=== PATIENT | female | born 1960 | race Asian ===

== ENCOUNTER 2020-06-21 10:47 | Observation (INO) ==
--- NOTE | 2020-06-21 12:02 | XRay Report ---
SINGLE VIEW CHEST CLINICAL HISTORY: Atypical chest pain. FINDINGS: An AP, portable, upright chest radiograph is compared to study dated 06/16/2020. The cardiom ediastinal silhouette is unremarkable. The lungs appear hyperinflated. There are bibasilar airspace o pacities. No large pleural effusion or pneumothorax is seen. The skeletal structures are osteopenic. The bony thorax is grossly intact. IMPRESSION: There are bibasilar airspace opacities. This could represent scarring/atelectasis versus a mild infectious/inflammatory pneumonitis and clinical correlation will be required. ACT 112: Negative or not required by law. Electronically signed by: Butch David M.D. 06/21/2020 12:01 PM
[2020-06-21 12:21] LABS: D Dimer 300 ug/L FEU (0-500)
[2020-06-21 12:23] LABS: Basophils # (auto) 0.02 K/uL (0-0.2); Basophils % (auto) 0.3 %; Eosinophils # (auto) 0.05 K/uL (0-0.5); Eosinophils % (auto) 0.8 %; Hemoglobin 13.8 g/dL (12.0-16.0); Immature Granulocytes # (auto) 0.01 K/uL (0.00-0.02); Immature Granulocytes % (auto) 0.2 %; Lymphocytes # (auto) 1.49 K/uL (1.2-3.4); Mean Corpuscular Hemoglobin 29.9 pg (25-34); Mean Corpuscular Hgb Conc 34.5 g/dL (32-36); Mean Corpuscular Volume 86.6 fL (80-100); Mean Platelet Volume 8.5 fL (7.4-10.4); Monocytes # (auto) 0.59 K/uL (0.11-0.59); Monocytes % (auto) 9.1 %; Neutrophils # (auto) 4.33 K/uL (1.4-6.5); Neutrophils % (auto) 66.6 %; Platelet Count 288 K/uL (130-400); RDW Coefficient of Variation 13.4 % (11.5-14.5); RDW Standard Deviation 42.6 fL (36.4-46.3); Red Blood Count 4.62 M/uL (4.2-5.4); White Blood Count 6.49 K/uL (4.8-10.8)
[2020-06-21 12:30] LABS: Alanine Aminotransferase 17 U/L (12-78); Albumin Level 3.6 gm/dl (3.4-5.0); Aspartate Aminotransferase 17 U/L (15-37); BUN Creatinine Ratio 19.6 (10-20); Blood Urea Nitrogen 19 mg/dl (7-18); Calcium 9.1 mg/dl (8.5-10.1); Carbon Dioxide 27 mmol/L (21-32); Chloride 104 mmol/L (98-107); Creatinine Clr Calc Pharmacy 54.5 ml/min; Est GFR (Non-African American) 64.7; Glucose 131 mg/dl (70-99); Lipase 200 U/L (73-393); Potassium 3.7 mmol/L (3.5-5.1); Sodium 137 mmol/L (136-145)
[2020-06-21] MEDS ORDERED: ASPIRIN CHEW 324 MG PO STA (12:33)
[2020-06-21 12:39] LABS: Albumin Globulin Ratio 0.8 (0.9-2); Alkaline Phosphatase 116 U/L (45-117); Bilirubin,Total 0.4 mg/dl (0.2-1); Creatine Kinase 102 U/L (26-192); Creatine Kinase MB < 1.0 ng/ml (0.5-3.6); Globulin 4.7 gm/dl (2.5-4.0); Total Protein 8.3 gm/dl (6.4-8.2); Troponin I < 0.015 ng/ml (0-0.045)
[2020-06-21 12:50] LABS: Influenza A virus by PCR Negative (Neg); Influenza B virus by PCR Negative (Neg); RSV by PCR Negative (Neg); SARS CoV2 RNA(COVID-19) InHosp NEGATIVE (Negative)
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
--- NOTE | 2020-06-21 14:47 | Electrocardiogram Report ---
Test Reason : Blood Pressure : / mmHG Vent. Rate : 068 BPM Atrial Rate : 068 BPM P-R Int : 146 ms QRS Dur : 092 ms QT Int : 400 ms P-R-T Axes : 019 007 -01 degrees QTc Int : 425 ms Normal sinus rhythm Nonspecific ST and T wave abnormality Abnormal ECG When compared with ECG of 16-JUN-2020 13:05, Inverted T waves have replaced nonspecific T wave abnormality in Inferior leads Nonspecific T wave abnormality has replaced inverted T waves in Anterior leads Confirmed by Hung Church ([id number]) on 06/21/2020 2:46:34 PM Referred By: Confirmed By:Hung Church
[2020-06-21] MEDS ORDERED: hydrOXYzine HCl 25 MG TAB PO PRN (17:06)
[2020-06-21] MEDS ORDERED: ACETAMINOPHEN 325 MG TAB PO PRN (17:06)
[2020-06-21] MEDS: NITROGLYCERIN 2% OINTMENT 30GM TUBE EXT SCH ×2 (18:00→23:44)
[2020-06-22] MEDS: NITROGLYCERIN 2% OINTMENT 30GM TUBE EXT SCH ×4 (06:05→23:33)
[2020-06-22] MEDS: PANTOprazole 40 MG TAB PO SCH (08:38)
--- NOTE | 2020-06-22 12:36 | XCELERA ---
[id number]
[2020-06-22] MEDS ORDERED: MELATONIN 3 MG TAB PO PRN (18:00)
--- NOTE | 2020-06-22 18:42 | Hospitalist Progress Note ---
Date of Service June 22, 2020 Assessment & Plan (1) Substernal chest pain: 60yo female without much past medical care, and resultant unknown PMH, presented to the ED with sudden-onset substernal chest pain and dyspnea in the setting of 2-3 years of exertional CP, dyspnea, and diaphoresis concerning for ischemia. Chest pain -EKG with nonspecific T wave inversion and nonspecific ST abnormalities -troponin negative, d-dimer subthreshold -stress echo 06/22 negative but with suboptimal HR achieved (65% expected max HR) -history in HPI very concerning for CP of cardiac origin; will consult cardiology, recommendations appreciated -NPO at midnight to optimize patient for potential procedures tomorrow -fasting lipid panel, A1c -nitroglycerin paste prn Hypertensive urgency -on admission -ddx includes pain, anxiety, ACS; resolved after chest pain resolved -normotensive since -continue to monitor GERD -c/w pantoprazole FENGI: regular diet Code status: full code Held home meds: none DVT ppx: patient ambulation; pharmacologic anticoagulation need assessment ongoing Dispo: inpatient pending cardiology consult Admission and Anticipated Discharge Date Admission Date: June 21, 2020 Supervising Physician Co-Signing Physician Notes I personally examined the patient and verified all lindquist points of history and exam, discussed case, and agree with decision making with Dr Robin Once history is able to be better elucidated, it sounds like she has had fairly consistent exertional limits due to chest pain/dyspnea/fatigue for about the last 2 years, and now recently that has been getting less and less. Vitals noted, in general she is awake and alert pleasant no distress. HEENT normocephalic atraumatic mucous membranes moist. Breathing unlabored no accessory muscle use good effort. Skin shows no rashes no pallor or icterus. Chest pain Initial history made it sound more pleuritic, but once history is able to be revisited, she does have a degree of a pleuritic pain, but this was not at all what brought her to the hospitalrather almost more of a story consistent with angina that has been slowly worsening, but with no known coronary diagnosis to support it. Further, she has only recently been starting to see physicians, so while she has very little medical history, it is largely due to lack of looking. With all of this, her nondiagnostic stress test becomes more concerningespecially given that it was terminated due to fatigue/exercise intolerance. Will consult cardiologyquestion whether to simply proceed with a left heart cath, versus doing a pharmacologic stress with more chance of getting a diagnostic study Subjective Patient seen at bedside this afternoon with her son present. Initially used aircraft painter iPad but the translation quality/efficiency was not as adequate as her son translating, so discontinued the iPad translation service and spoke through her son after he offered. Patient is doing well today and reports her chest pain has greatly improved. Denies SOB, nausea, vomiting, lightheadedness, dizziness, palpitations, or other symptoms. Stress echo was negative but was suboptimal with patient reaching only 65% max HR. Spoke with patient at length today to obtain more detailed HPI. She notes her recent sudden-onset chest pain has been crushing, substernal pressure with occasional sharp stabbing pains. She feels faint, flush, and anxious when this happens. No radiation. This is a new pain for her, occurring once last week (went to the ER) and twice last night before she came to the hospital. She also notes a 2-3 year history of exertional chest pain and dyspnea, also substernal and pressure-like, brought on when she goes on walks with her daughter. These walks are fast-paced and patient has trouble keeping up with her daughter. Patient notes this CP used to occur about 30-35 minutes into these walks, but has more recently started occurring earlier. These episodes are associated with dyspnea, sweating, facial pallor, and sometimes shaking in her arms. This occurs every time patient exerts herself this much; there are no times when walking at that pace for that duration does not cause symptoms. Review of Systems Review of Systems: See HPI Physical Exam Physical Exam: Well-appearing, laying in bed, no acute distress, speaking Cantonese NCAT, MMM CV: regular rhythm, no murmurs appreciated Resp: CTABL Abd: soft, nontender, nondistended MSK: moderate tenderness to palpation of left 3rd-5th intercostal spaces, no sternal tenderness, mild tenderness of right 4th-5th intercostal space, no calf tenderness Neuro: no focal deficits appreciated Psych: euthymic, cooperative Results & Data Results & Data ([facility]) Vital Signs (Past 12 Hours) Vital Signs Temp Pulse Pulse Resp BP BP Pulse Ox 06/22/20 16:35 69 06/22/20 13:28 66 112/65 06/22/20 10:18 58 L 06/22/20 07:22 36.6 C 56 L 16 109/66 97 Resident Activity Tracking Resident Involvement: Resident Care Provided Care Provided: Adult Hospital Medicine
--- NOTE | 2020-06-22 19:49 | Billing Data ---
Date of Service June 22, 2020 Coding Level of Care Code 42031 Subseq Obs Care Lvl 3
[2020-06-23] MEDS: NITROGLYCERIN 2% OINTMENT 30GM TUBE EXT SCH ×2 (05:21→13:06)
[2020-06-23 07:50] LABS: Estimated Average Glucose 154 mg/dl
[2020-06-23 08:15] LABS: BUN Creatinine Ratio 28.8 (10-20); Calcium 8.8 mg/dl (8.5-10.1); Creatinine Clr Calc Pharmacy 57.6 ml/min; Est GFR (African American) 84.5; Est GFR (Non-African American) 72.9; Potassium 3.6 mmol/L (3.5-5.1)
[2020-06-23] MEDS: PANTOprazole 40 MG TAB PO SCH (08:57)
--- NOTE | 2020-06-23 09:14 | Hospitalist Progress Note ---
Date of Service June 23, 2020 Assessment & Plan Admission and Anticipated Discharge Date Admission Date: June 21, 2020 Results & Data Results & Data ([facility]) Vital Signs (Past 12 Hours) Vital Signs Temp Pulse Pulse Resp BP Pulse Ox 06/23/20 07:49 36.7 C 59 L 18 126/72 96 06/23/20 06:57 61 06/23/20 02:41 36.6 C 63 18 122/70 97 06/23/20 00:44 71 06/22/20 23:02 36.6 C 70 18 130/80 96
[2020-06-23] MEDS ORDERED: DOBUTamine HCL 12.5 MG/ML 20 ML VIAL IV ONE (10:56)
[2020-06-23] MEDS ORDERED: METOPROLOL TARTRATE 1 MG/ML VIAL IV ONE (10:56)
[2020-06-23] MEDS ORDERED: ATROPINE SULFATE 0.1 MG/ML 10ML SYR IV ONE (10:56)
[2020-06-23] MEDS ORDERED: OPTIRAY 320 125ml IV ONE (14:20)
--- NOTE | 2020-06-23 14:41 | CT Scan Report ---
CT ANGIOGRAM OF THE CHEST CLINICAL HISTORY: Dyspnea on exertion. Abnormal chest x-ray. COMPARISON STUDY: Chest x-ray dated 06/21/2020 TECHNIQUE: Following the IV administration of 120 mL of Optiray-320, CT angiogram of the thorax was p erformed from the thoracic inlet to the lung bases utilizing the pulmonary embolus protocol. Images a re reviewed in the axial, sagittal, and coronal planes. IV contrast was administered without complica tion. MIP imaging was performed. A dose lowering technique was utilized adhering to the principles o f ALARA. CT DOSE: 212.49 mGy.cm FINDINGS: No pathologically enlarged axillary mediastinal or hilar lymph nodes were visualized. There was no evidence of thoracic aortic dilatation. There were no pulmonary artery filling defects to indicate acute pulmonary embolism. No pleural effusions are visualized. There are bibasilar parenchymal opacities, statistically atelectatic. There is biapical pleural and p arenchymal scarring. There is a 7 mm right upper lobe groundglass pulmonary nodule. There is an 8 mm solid subpleural right lower lobe pulmonary nodule, as visualized image #[id number].. There is a 4 mm porter id right upper lobe pulmonary nodule as visualized on image #[id number] IMPRESSION: 1. No evidence of acute pulmonary embolism 2. Lower lobe bibasilar dependent parenchymal opacities. The distribution favors atelectasis although an inflammatory process could appear similar 3. 8 mm solid subpleural right lower lobe pulmonary nodule. A six-month follow-up CT scan is recommen ded. Please refer to below summary of Fleischner criteria recommendations for follow-up of incidental CT n odules (Dustin Carmona, Guidelines for management of small pulmonary nodules detected on CT scans: A sta tement from the Fleischner Society, Radiology 237: [phone].) SOLID NODULES Solitary nodule size: <6 mm * low risk patients: no follow-up needed * high risk patients: optional CT at 12 months Solitary nodule size: 6-8 mm * low risk patients: follow-up at 6-12 months, then consider further follow-up at 18-24 months * high risk patients: initial follow-up CT at 6-12 months and then at 18-24 months if no change Solitary nodule size: >8 mm * either low or high risk patients - consider follow-up CT at 3 months, and/or CT-PET, and/or biopsy Multiple nodules size: <6 mm * low risk patients: no routine follow-up * high risk patients: optional CT at 12 months Multiple nodules size: 6-8 mm * low risk patients: follow-up at 3-6 months, then consider further follow-up at 18-24 months * high risk patients: follow-up at 3-6 months, then at 18-24 months if no change Multiple nodules size: >8 mm * low risk patients: follow-up at 3-6 months, then consider further follow-up at 18-24 months * high risk patients: follow-up at 3-6 months, then at 18-24 months if no change Note: newly detected indeterminate nodule in persons 35 years of age or older. * low risk patients: minimal or absent history of smoking and/or other known risk factors * high risk patients: history of smoking or of other known risk factors (e.g. first degree relative with lung cancer, or exposure to asbestos, radon, uranium) * if a nodule up to 8 mm is partly solid or is ground glass further follow-up is required after 24 m onths to exclude possible slow growing adenocarcinoma (DAVID) SUBSOLID NODULES Solitary pure ground-glass nodule * nodule size <6 mm - no CT follow-up required * nodule size >=6 mm - follow-up CT at 6-12 months, then every 2 years until 5 years Solitary part-solid nodule * nodule size <6 mm - no CT follow-up required * nodule size >=6 mm - follow-up CT at 3-6 months. If unchanged, and solid component remains <6 mm, then annual follow-up for 5 years Multiple subsolid nodules * nodule size <6 mm - follow-up CT at 3-6 months, consider further follow-up at 2 and 4 years if sta ble * nodule size >=6 mm - follow-up CT at 3-6 months, subsequent management based on the most suspiciou s nodule(s) ACT 112: Positive. There are findings on this exam that require communication between the performing entity and the patient following Patient Test Result Information Act ([place] Act 112) guidelines. Electronically signed by: Rodolfo Gonzales M.D. 06/23/2020 2:39 PM
--- NOTE | 2020-06-23 14:55 | XCELERA ---
[id number]
--- NOTE | 2020-06-23 17:45 | Discharge Summary ---
Date of Service June 23, 2020 Admission HPI Per Admitting Provider Carolina Hatch is a 60-year-old female who presents to the ER with chest pain on advice of her PCP. The patient was offered Cantonese translation but declined this in favor of her son to translate at bedside. She reports a sharp stabbing pain on the left side of her chest that started this morning lasting for seconds at a time. No worse on exertion, position or inspiration. This is a new chest pain, different from her one that she came in with 4 days ago. She called her PCP about this this morning and was recommended she come to the ER for evaluation. Of note the patient was seen in the ER 4 days previously for a different substernal chest pain which gets worse when her gets more aggressive with her. She reported to the ER provider that things with her have been better since her last visit. She declined any surgical intervention and was recommended to follow-up with her PCP. Family history of cardiac disease with her brother having a heart attack aged 45 years old. In the ER initial troponin was negative. EKG unremarkable. She was referred to medicine for admission ongoing management of chest pain. Principal Diagnosis Chest pain, possibly due to atypical pneumonia Discharge Exam In general she is awake and alert pleasant no distress. HEENT normocephalic atraumatic mucous membranes are moist. Wheezing unlabored no accessory muscle use good effort. Skin shows no rashes no pallor or icterus. Neuro shows no focal deficits. Stress echo was negative for ischemia, good study good imaging CT chest with lower lobe bibasilar dependent parenchymal opacities possibly atelectasis versus inflammatory and a right lower lobe pulmonary nodule Discharge Data Allergies Allergy/AdvReac Type Severity Reaction Status Date / Time No Known Allergies Allergy Unknown ` Unverified 06/21/20 13:32 Consultations 06/21/20 12:55 ED Decision to Admit Stat 06/22/20 17:07 Consult Cardiology Routine Ordered Studies 06/23/20 13:38 CT angio chest PE protocol Urgent Hospital Course (1) Substernal chest pain: -Admitted with chest pain, risks unknowndid not follow with doctors frequently. Symptoms were predominantly exertional, with worsening exercise tolerance and a lower threshold to create chest pressure and shortness of breath recently. Stress echo done, but with suboptimal test and was only able to go 1 minute and 43 seconds on the treadmill with 4 METS. Because of concerning symptoms and very suboptimal stress, it was reviewed is nondiagnostic, and a dobutamine echo was done which achieved 97% of max predicted heart rate, with no chest pain no EKG changes and no echo findings. Because of low probability of cardiac symptoms, but very cardiopulmonary sounding symptoms, and no real reason to view it as simply deconditioning, chest CT was done. No PEs, mild patchy findings as described above, and no other clear findings of lung disease. -For lack of other pathology, atypical pneumonia was entertained as a possible cause for her recent symptomswas discussed with patient and familythe diagnostic uncertainty of this was discussed as well (noting that we would do a therapeutic trial, but that we would not really know that this was the culprit and less she both got better and her radiographic findings resolved)but given that we did not have any overt worrisome or life-threatening pathology, it would be very safe to get her home. -Course of Zithromax, PCP follow-up, repeat imaging Type 2 diabetes -Hopefully correctable with lifestyle change. Outpatient follow-up with PCP Dyslipidemia -Likely would benefit from a statin, will defer to PCP for close follow-up in this regard Lung nodule -May even be inflammatory, if she does not fact have an atypical pneumonia. Course of Zithromax, reimaging. If it is still present, then follow by typical procedures. Stable for home, close PCP follow-up. Total Time Total Time Spent Total Time Spent (In Minutes): <30 Discharge Plan Discharge Items Patient Disposition: Home - Self-Care Reason For Visit: CHEST PAIN RULE OUT NM Discharge Diagnosis: Chest pain Activity: Resume your previous activity Non-emergency contact: Primary Care Provider Call non-emergency contact if: you have any medication questions and your symptoms worsen Follow-up/Referrals: Susanna Tate [Primary Care Provider] - Diet: Carb Consistent or DM2 and Heart Healthy Addtl Attending Provider Instructions: You were admitted to the hospital for chest pain. We do not think your heart is the source of your chest pain. While running different tests to evaluate your symptoms, we discovered that you have high cholesterol (hyperlipidemia) as well as diabetes. Dr. Tate will help you manage these. We also found a possible pneumonia that is small. We have prescribed one medicine, an antibiotic, to treat this. A discharge summary will be sent to your primary care physician to ensure continuity of care. Please bring this discharge summary with you to your next office appointment so that your provider can review it at that time. Follow-up appointments: - You have a follow-up appointment with Dr. Tate on June 27 at 1:30pm. Medications: - Your medication list has been reviewed and reconciled upon discharge to ensure accuracy and continuity of care. - You have been prescribed azithromycin 250mg tablets to treat pneumonia. - Tonight (06/23), take two tablets of azithromycin. - Then, take one tablet daily for four days (from 06/24 - 06/27). Your last dose of azithromycin is on 06/27. - Tell your primary care provider if you cannot afford your medications. - Call your primary care provider if you are having any side effects or any other problems. - Call your primary care provider before taking any over the counter medications or supplements, including herbals and vitamins, because some of these may interact with your current medications and/or make your symptoms worse. Thank you for allowing us to participate in your care. Pending Studies at Discharge: No Stand-Alone Forms: My [facility] Medications and DC Order Prescriptions: New azithromycin 250 mg tablet 250 mg PO DAILY 6 Days Qty: 6 RF: 0 Continued pantoprazole [Protonix] 40 mg tablet,delayed release (DR/EC) 40 mg PO DAILY 28 Days Qty: 28 RF: 0 famotidine [Pepcid] 20 mg tablet 20 mg PO BID PRN (Reason: Gastritis) 28 Days Qty: 56 RF: 0 hydroxyzine pamoate [Vistaril] 25 mg capsule 25 mg PO Q6H PRN (Reason: anxiety) Qty: 30 RF: 0 Discharge Orders: Discharge Order (Routine); Ordered 06/23/20 Ordered By: Raghavendra Liu/Other Patient Handouts: 5 Steps for Eating Healthier, A1C Admission Data Admit Date/Time: 06/21/20 13:39 Attending Provider: Josh Urias Admit Provider: Ian Maya Primary Care Provider: Susanna Tate Other Providers: Ian Maya ; Trey Newton Other Interventions: Discharge Summary Assessment (RN) Last Done: 06/23/20 16:38 Coding Level of Care Code 11009 OBS Care - Discharge Diagnoses Substernal chest pain R07.2
--- NOTE | 2020-06-23 17:46 | Billing Data ---
Date of Service June 23, 2020 Coding Level of Care Code 87763 OBS Care - Discharge
== END 2020-06-23 18:23 | disposition home or self-care (01) ==
LOC: 2W 10:47 → ED 10:47 → SUATTDRO 13:39 → 2W 16:31 → 2N 06-22 19:49 → UNDODISOB 06-23 17:41